=== PATIENT | male | born 1995 | race Caucasian/White ===

== ENCOUNTER 2018-01-26 11:06 | Emergency (ER) | payer BC, OTHER ==
[~2018-01-26] VITALS: Ht 177.8 cm; Wt 80.8 kg
[~2018-01-26 11:06] MED LIST: ALBUAER2 INH; GLGKIT IM; INSPMPHMLG; MECL1TAB42 PO
[2018-01-26 11:18] VITALS: TEMP 38.3; Ht 177.8 cm; Wt 80.8 kg
[2018-01-26] MEDS ORDERED: VNTHFA/IN INH (11:45)
[2018-01-26] MEDS ORDERED: PENICILLIN V POTASSIUM 250 MG TAB PO STA (12:03)
[2018-01-26] MEDS ORDERED: IBUPROFEN 800 MG TAB PO STA (12:03)
[2018-01-26] MEDS ORDERED: PENI-82 PO (12:07)
--- NOTE | 2018-01-26 12:10 | EMERGENCY ROOM VISIT NOTE ---
ED Visit Note First contact with patient: 11:21 CHIEF COMPLAINT: Sore throat, headache, fever, body aches, chills HISTORY OF PRESENT ILLNESS: This 22-year-old male patient presents to the emergency department ambulatory, complaining of sore throat 2 days. The patient has taken no medications for his symptoms. The patient received reports associated body aches, chills, head pressure, anterior cervical lymphadenopathy. They deny any other symptoms including congestion, rhinorrhea , cough, nausea, or vomiting. There is pain with swallowing and the patient is having difficulty eating. The patient does not recall any known exposure to strep throat, but is a [employer] student. Denies a rash. The patient is diabetic, and states his blood sugars have been very elevated for the past 2 days. He is tolerating food and fluids without any vomiting. He states he has had a decreased appetite. REVIEW OF SYSTEMS: A 10 system review of systems was performed with positives and pertinent negatives listed in the history of present illness. All other systems were reviewed and are negative. ALLERGIES: None MEDICATIONS: None PMH: Diabetes SOCIAL HISTORY: The patient is a [employer] student. He lives locally with his roommates. He denies drug, alcohol, tobacco use. PHYSICAL EXAM: VITALS: Vitals are noted on the nurse's note and reviewed by myself. Vital signs stable. GENERAL: This is a 22-year-old white male, in no acute distress, nondiaphoretic , well-developed well-nourished. SKIN: The skin was without rashes, erythema, edema, or bruising. There is no tenting of the skin. Capillary reflex less than 2 seconds. HEAD: Normocephalic atraumatic. EARS: External auditory canals clear, tympanic membranes pearly alvarez without erythema or effusion bilaterally. EYES: Pupils equal round and reactive to light and accommodation. Conjunctivae without injection, sclerae without icterus. Extraocular movements intact. NOSE: Patent, turbinates without inflammation or discharge. No sinus tenderness. MOUTH: Mucous membranes moist. Tonsils are not enlarged. Pharynx does show erythema and exudate. Uvula midline. Airway patent. Tongue does not deviate. NECK: Supple without nuchal rigidity. Positive anterior cervical lymphadenopathy noted. No thyromegaly. Cervical spine is nontender. No JVD. HEART: Regular rate and rhythm without murmurs gallops or rubs. LUNGS: Clear to auscultation bilaterally without wheezes, rales or rhonchi. No dullness to percussion. No retractions or accessory muscle use. MUSCULOSKELETAL: No muscle atrophy, erythema, or edema noted. Full range of motion without joint tenderness in all extremities. No tenderness to palpation. Normal gait. Strength 5/5 throughout. NEURO: Patient was alert and oriented to person place and time. Normal sensation to light and sharp touch. No focal neurological deficits. EMERGENCY DEPARTMENT COURSE: The patient was seen and evaluated as above. Rapid strep test was performed and was negative. The patient scored 4 points on the Centor score with a 51-53% probability of strep pharyngitis. In the setting of diabetes as well as this finding, the patient will be treated despite negative rapid strep test. The patient was agreeable after discussion regarding risks versus benefits associated with antibiotic treatment. The patient was given his first dose of penicillin as well as ibuprofen while here in the emergency department prior to discharge. Discharge instructions reviewed , and the patient was discharged home in good condition. I attest that I have personally reviewed the patient's current medication list. Patient was found to have normal blood pressure on screening and does not require follow-up. DIFFERENTIAL DIAGNOSIS: URI, acute sinusitis, influenza, viral pharyngitis, Strep Pharyngitis, Oaxe-Ggjs-Rjqrf Disease, Peritonsillar abscess, tonsilitis, malignancy, and others DIAGNOSIS: Acute pharyngitis Problem List Medical Problems: (1) Diabetes Status: Chronic Current/Historical Medications Scheduled Insulin Human Lispro (Insulin Humalog Pump ), 1 EA N/A UD Penicillin V Potassium (Veetids), 500 MG PO TID Scheduled PRN Albuterol Hfa (Ventolin Hfa), 2-4 PUFFS INH Q6H PRN for SOB/Wheezing Glucagon (Glucagon Emergency Kit), 1 MG IM UD PRN for Severe Hypoglycemia Meclizine Hcl (Meclizine Hcl), 25 MG PO TID PRN for Dizziness or Vertigo Allergies Coded Allergies: No Known Allergies (Unverified , 01/26/18) Vital Signs Date Time Temp Pulse Resp B/P (MAP) Pulse Ox O2 Delivery O2 Flow Rate FiO2 01/26/18 12:53 106 17 143/70 95 01/26/18 11:18 38.3 112 18 133/72 96 Room Air Medications Administered Medications (Trade) Dose Ordered Sig/Ely Route Start Time Stop Time Status Last Admin Dose Admin Ibuprofen (Motrin Tab) 800 mg NOW STAT PO 01/26/18 12:03 01/26/18 12:06 DC 01/26/18 12:26 800 MG Penicillin V Potassium (Veetids Tab) 500 mg NOW STAT PO 01/26/18 12:03 01/26/18 12:06 DC 01/26/18 12:26 500 MG Departure Information Impression Primary Impression: Acute pharyngitis Dispostion Home / Self-Care Condition GOOD Prescriptions Penicillin V Potassium (Veetids) 500 Mg Tab 500 MG PO TID for 10 Days, #30 TAB Prov: La Nascimento PA-C 01/26/18 Referrals No Doctor, Assigned (PCP) [facility] Patient Instructions ED Strep Pharyngitis [facility], My [facility] Additional Instructions You were seen in the ED today for sore throat. Your rapid strep screen was read as negative, however, based on your symptoms and diabetes history, I will be starting you on antibiotics. Take prescription medications as prescribed. Pen VK 500 mg t.i.d. x10 days. All antibiotics have the potential to cause diarrhea. A few develop a rash while on this medication stop the medication and see your family physician for evaluation. Take the Medrol Dosepak as prescribed. Ibuprofen(Motrin, Advil) may be used for fever or pain. Use 600mg every six hours as needed. Take with food. Avoid using more than 2400mg in a 24 hour period. Do not use 2400mg per day for more than three consecutive days without physician direction. Prolonged inappropriate use can lead to stomach upset or ulcers. (AND/OR) Acetaminophen(Tylenol) may be used for fever or pain. Use 1000mg every six hours as needed. Avoid using more than 3000mg in a 24 hour period. Monitor your blood sugars and use your sliding scale for insulin dosing. Use warm salt water gargles. And drink warm tea to help soothe your throat. For your sore throat, you may use a 1:1 mixture of liquid Benadryl and liquid Maalox. Gargle and spit this mixture. It will help to soothe the throat and provide some relief. Return to emergency department if symptoms of difficulty breathing, increased pain or difficulty swallowing, or symptoms do not respond to the case described. Problem Qualifiers Primary Impression: Acute pharyngitis Pharyngitis/tonsillitis etiology: unspecified etiology Qualified Codes: J02.9 - Acute pharyngitis, unspecified
[2018-01-26 12:53] VITALS: BP 143/70; PULSE 106; O2SAT 95
== END 2018-01-26 12:54 | disposition home or self-care (01) ==
LOC: C.EDB 11:08
DX: J02.9 Acute pharyngitis, unspecified (principal); E11.9 Type 2 diabetes mellitus without complications; Z79.4 Long term (current) use of insulin